=== PATIENT | female | born 1960 | race Caucasian/White ===

== ENCOUNTER 2021-01-20 18:08 | Emergency (ER) | payer OTHER, SELFPAY ==
--- NOTE | ~2021-01-20 | XR_ITS ---
EXAMINATION: XR foot LT min 3V DATE: 01/20/2021 18:42 INDICATION: Left fifth toe pain post injury TECHNIQUE: Dorsoplantar, two oblique and lateral views of the left foot were obtained. COMPARISON: None. FINDINGS: Minimally displaced extra articular transverse fracture at the distal neck of the left fifth proximal phalanx. Alignment remains near-anatomic. No other fractures identified. Medial collateral a directe d compression screw spanning the medial, mid and lateral cuneiforms. 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 Bone island at the first distal phalanx. Soft tissue swelling about the bas e of the fifth toe. IMPRESSION: 1. Minimally displaced extra articular fracture at the neck of the left fifth proximal phalanx. Reviewed, dictated and finalized at location A. IMPRESSION: 1. Minimally displaced extra articular fracture at the neck of the left fifth p roximal phalanx.
[2021-01-20 18:18] VITALS: BP 141/82; PULSE 88; RESP 16; TEMP 36.4; O2SAT 98
--- NOTE | 2021-01-20 18:44 | ED.LOWEXIN ---
HPI - Extremity Injury (Lower) General Chief Complaint: Extremity Injury, Lower Stated Complaint: Pain in small Toe of the left Foot from fall Time Seen by Provider: 01/20/21 18:45 Source: patient Mode of arrival: ambulatory Limitations: no limitations History of Present Illness HPI Narrative: Alyson Wheeler is a 60-year-old female who was at the swimming pool today and when got up her foot got caught in the Tylenol and her left foot get caught and heard her fifth toe pop Related Data Home Medications Medication Instructions Recorded Confirmed cetirizine [Zyrtec] 10 mg PO DAILY 01/20/21 01/20/21 Allergies Allergy/AdvReac Type Severity Reaction Status Date / Time No Known Allergies Allergy Verified 01/20/21 18:34 Review of Systems Review of Systems: Narrative: CONSTITUTIONAL: Denies fever, chills, sweats. EYES: Denies visual changes, redness, discharge. ENT: Denies rhinorrhea, congestion, sore throat, otalgia. CARDIOVASCULAR: Denies chest pain, palpitations, edema. RESPIRATORY: Denies dyspnea, wheezing, cough GASTROINTESTINAL: Denies abdominal pain, nausea, vomiting, diarrhea. GENITOURINARY: Denies dysuria, hematuria, abnormal discharge SKIN: Denies rash or itching. NEUROLOGIC: Denies numbness, or focal weakness. PSYCHIATRIC: Denies anxiety or depression. Left foot fifth toe pain and unable to bear weight PMFSH Past Medical History Medical History No acute medical problems Family History Family History Other No acute medical problems Social History Social History (Updated 01/20/21 @ 18:52 by Joana Barba CNP) Smoking packs per day: 0.5 Smoking cigarettes per day: 10.0 Smoking status: Current every day smoker Alcohol intake: current Alcohol use details: 2 glasses wine/day Comments Fingers Exam Narrative: Exam Narrative: GENERAL: This is a well-nourished, well-developed patient, in mild distress. HEAD: normocephalic, atraumatic. EYES: PERRL. Sclera clear/white. Vision is grossly intact. EARS: External ears normal, auditory canals clear and without drainage, TMs normal without perforation. Hearing grossly intact. NOSE: External nose normal without nasal discharge, nares without redness, no rhinorrhea. THROAT: Mucous membranes moist, posterior pharynx NECK: Neck supple, non-tender CARDIOVASCULAR: Regular rate and rhythm without murmurs, gallops, or rubs. RESPIRATORY: Clear to auscultation. Breath sounds equal bilaterally. No wheezes, rales, or rhonchi. GASTROINTESTINAL: Abdomen soft, non-tender, SKIN: warm, intact with no suspicious lesions or rash, good texture and turgor. NEURO: awake, alert, and oriented to person, place and time. There were no obvious focal neurologic abnormalities. Steady gait EXTREMITIES: Normal range of motion. Left first toe pain and with movement and swelling BACK: Nontender without deformity Course Course Emergency Course: Patient came in fifth toe pain on left foot X-ray of the foot-fracture of fifth metatarsal, DNP Eros tape toe Placed in postop shoe Ibuprofen 600 mg 3 times daily as needed; follow-up with podiatry Vital Signs Vital signs: Vital Signs Temperature 97.5 F L 01/20/21 18:18 Pulse Rate 88 01/20/21 18:18 Respiratory Rate 16 01/20/21 18:18 Blood Pressure 141/82 H 01/20/21 18:18 Pulse Oximetry 98 01/20/21 18:18 Temperature 97.5 F L 01/20/21 18:18 Pulse Rate 88 01/20/21 18:18 Respiratory Rate 16 01/20/21 18:18 Blood Pressure 141/82 H 01/20/21 18:18 Pulse Oximetry 98 01/20/21 18:18 MDM - Extremity Injury (Lower) Differential Diagnosis Differential diagnosis: Likely ankle sprain and strain, puncture wound of foot, fracture of toe, ankle fracture and other Critical Care Time Critical Care Time Critical Care Time: No Discharge Plan Discharge Clinical Impression: Closed fracture of fifth toe
== END 2021-01-20 19:04 | disposition home or self-care (01) ==
PROVIDERS: Emergency Provider Nurse Practitioner; PCP Internal Medicine
DX: S92.512A Displaced fracture of proximal phalanx of left lesser toe(s), initial encounter for closed fracture (principal); X58.XXXA Exposure to other specified factors, initial encounter; F17.210 Nicotine dependence, cigarettes, uncomplicated
CPT/HCPCS: 73630; 99204; G0463

== ENCOUNTER 2021-05-13 12:28 | Emergency (ER) | payer OTHER, SELFPAY ==
--- NOTE | 2021-05-13 12:31 | ED.LOWEXIN ---
HPI - Extremity Injury (Lower) General Chief Complaint: Extremity Problem,Nontraumatic Stated Complaint: Left Leg Swelling Time Seen by Provider: 05/13/21 12:31 Source: patient and RN notes reviewed History of Present Illness HPI Narrative: Patient is a 60-year-old female who presents the urgent care with complaints of left leg swelling. Patient states is been ongoing since Friday and does seem to improve with elevation. Patient denies of any chest pain or shortness of breath. Patient states she does have a history of cancer but denies history of lymphedema. Patient denies any numbness or tingling to the foot or lower extremity. Denies of any known injury. Patient has not taken anything [id number] for her symptoms. Currently denies of any pain. No other acute complaints. No acute distress noted. Patient had a plan of care. Some parts of this dictation were generated by voice recognition software and may contain typographical and/or grammatical inaccuracies. Related Data Home Medications Medication Instructions Recorded Confirmed No Home Medications 05/13/21 05/13/21 Allergies Allergy/AdvReac Type Severity Reaction Status Date / Time No Known Allergies Allergy Verified 05/13/21 12:39 Review of Systems Review of Systems: CONSTITUTIONAL: Denies fever, chills, or sweats. EYES: Denies visual changes, redness, or discharge. ENT: Denies rhinorrhea, congestion, sore throat, or otalgia. CARDIOVASCULAR: Denies chest pain, palpitations, or edema. RESPIRATORY: Denies cough or dyspnea. GASTROINTESTINAL: Denies abdominal pain, nausea, vomiting, or diarrhea. GENITOURINARY: Denies dysuria or hematuria. SKIN: Denies rash or itching. MUSCULOSKELETAL: Reports of left leg swelling NEUROLOGIC: Denies headache, numbness, or weakness. All other systems reviewed are negative, except as documented in HPI. [facility] Past Medical History Medical History No acute medical problems Family History Family History Other No acute medical problems Social History Social History (Updated 01/20/21 @ 18:52 by Joana Barba CNP) Smoking packs per day: 0.5 Smoking cigarettes per day: 10.0 Smoking status: Current every day smoker Alcohol intake: current Alcohol use details: 2 glasses wine/day Comments At the time of my signature, I reviewed and agree with the nursing past medical, surgical, social, and family history. There is no relevant family history pertinent to the patient complaint. Exam Narrative: GENERAL: This is a well-nourished, well-developed patient, in no apparent distress. HEAD: normocephalic, atraumatic. EYES: PERRL. Sclera clear/white. Vision is grossly intact. EARS: External ears normal NOSE: External nose normal with no obvious nasal discharge, nares without redness, no rhinorrhea. THROAT: Mucous membranes moist NECK: Neck supple CARDIOVASCULAR: Regular rate and rhythm without murmurs, gallops, or rubs. RESPIRATORY: Clear to auscultation. Breath sounds equal bilaterally. No wheezes, rales, or rhonchi. SKIN: warm, intact with no suspicious lesions or rash, good texture and turgor. NEURO: awake, alert, and oriented to person, place and time. There were no obvious focal neurologic abnormalities. EXTREMITIES: Positive left Homans' sign. No erythema noted to the left lower extremity. No calf tenderness at rest. 2+ nonpitting left lower leg edema. Positive strong left pedal pulse with capillary refill less than 2 seconds. Left calf measures 38cm, right calf 37 cm Course Vital Signs Vital signs: Vital Signs Temperature 98.0 F 05/13/21 12:36 Pulse Rate 107 H 05/13/21 12:36 Respiratory Rate 16 05/13/21 12:36 Blood Pressure 115/75 05/13/21 12:36 Pulse Oximetry 100 05/13/21 12:36 Temperature 98.0 F 05/13/21 12:48 Pulse Rate 107 H 05/13/21 12:48 Respiratory Rate 1
[2021-05-13 12:36] VITALS: BP 115/75; PULSE 107; RESP 16; TEMP 36.7; O2SAT 100
[2021-05-13 12:48] VITALS: BP 115/75; PULSE 107; RESP 16; TEMP 36.7; O2SAT 100
== END 2021-05-13 12:54 | disposition left against medical advice (07) ==
PROVIDERS: Emergency Provider Nurse Practitioner Family; PCP Internal Medicine
DX: R60.0 Localized edema (principal); F17.210 Nicotine dependence, cigarettes, uncomplicated
CPT/HCPCS: 99211; G0463